=== PATIENT | female | born 1960 | race Caucasian/White ===

== ENCOUNTER 2019-12-05 10:38 | Outpatient (CLI) | payer OTHER, SELFPAY ==
--- NOTE | 2019-12-05 10:45 | MM_ITS ---
WS: [id number] BILATERAL DIGITAL SCREENING MAMMOGRAM WITH CAD CLINICAL INFORMATION: SCREENING HISTORY: Screening mammogram. No current complaints. COMPARISON: August 07, 2018 TECHNIQUE: Bilateral CC and MLO views. FINDINGS: Fatty-replaced breasts bilaterally. No suspicious focal mass, asymmetry, calcifications, or architectural examiner ural distortion. No evidence of malignancy. MM/[place] [id number] IMPRESSION: BI-RADS: 1-Negative FOLLOW UP: 1 Year Follow-up Recommend return to annual screening mammography.
== END 2019-12-05 10:39 | disposition home or self-care (01) ==
LOC: RADSHAW 10:40
PROVIDERS: Family Provider Internal Medicine; PCP Internal Medicine; Visit Provider Internal Medicine
DX: Z12.31 Encounter for screening mammogram for malignant neoplasm of breast (principal)
CPT/HCPCS: 77067

== ENCOUNTER 2020-12-04 11:43 | Outpatient (CLI) | payer OTHER, SELFPAY ==
--- NOTE | 2020-12-04 11:56 | MM_ITS ---
WS: [id number] BILATERAL SCREENING DIGITAL MAMMOGRAM WITH CAD HISTORY: SCREENING COMPARISON: 12/05/2019 and 08/07/2018 Bilateral CC and MLO views submitted. Computer aided detection analyzed. Breast composition: The breasts are almost entirely fatty. No suspicious masses, microcalcifications or architectural distortion. MM/[place] [id number] IMPRESSION: BI-RADS: 1-Negative FOLLOW UP: 1 Year Follow-up
== END 2020-12-04 11:44 | disposition home or self-care (01) ==
LOC: RADSHAW 11:46
PROVIDERS: Family Provider Internal Medicine; PCP Internal Medicine; Visit Provider Internal Medicine
DX: Z12.31 Encounter for screening mammogram for malignant neoplasm of breast (principal)
CPT/HCPCS: 77067

== ENCOUNTER 2021-01-15 08:41 | Day surgery (SDC) | payer OTHER, SELFPAY ==
[2021-01-08 07:44] VITALS: BMI 50.8
--- NOTE | 2021-01-15 09:13 | ANES.PREANE2 ---
Pre-Anesthetic Assessment Pre-Anesthetic Assessment: Height/Weight: Height 1.55 m Weight 122.016 kg Preop Diagnosis: screening colonoscopy Proposed Procedure: Operation Date: 01/15/21 10:00 Proposed Procedures p Colonoscopy 02663 z86.010(Not Applicable) - Donny Meadows MD Was Beta Evette taken within 24 hours: Yes Was Clonidine taken within 24 hours: N/A Social: Social History: No alcohol and No tobacco Exam: Pre-Anes Outpt Exam: alert, oriented x 3, clear to auscultation bilaterally and regular rate & rhythm Airway: Submandibular: WNL Cervical ROM: WNL MP: 2 Dentition: Full CV/HEM: CV/HEM: CAD, HTN and CT Comments: CABG GI: GI: GERD Metabolic: Metabolic: Morbid obesity and Thyroid Anesthetic Plan: ASA status: 3 Anesthesia: MAC Risk of > 500 ml blood loss (7ml/kg in children): No PFSH Anesthesia PFSH: Medical History (Updated 12/19/20 @ 09:50 by Donny Meadows MD) GERD (gastroesophageal reflux disease) Hypertension Hypothyroidism Surgical History (Updated 12/19/20 @ 09:50 by Donny Meadows MD) History of arthroplasty of right shoulder History of History of coronary artery bypass graft x 2 (~1995) History of hysterectomy History of tonsillectomy Status post colonoscopy Family History (Updated 12/19/20 @ 09:38 by Laury Fritz RN) Denies family history of Anesthesia complication Bleeding disorder Social History (Updated 12/19/20 @ 09:38 by Laury Fritz RN) Smoking and tobacco status: former smoker Quit status (tobacco): has quit using tobacco Year quit tobacco: 1997 Alcohol intake: never Data Anesthesia Cardiac Studies: No Data to Display
[2021-01-15] MEDS: sodium chloride 0.9% 1,000 ML 30 ML IV (09:41)
[2021-01-15 09:46] VITALS: BP 188/92; PULSE 76; RESP 16; TEMP 36.9; O2SAT 99
--- NOTE | 2021-01-15 10:04 | W.PM.OPSUD ---
Surgery/Procedure H&P Update DATE OF PROCEDURE: January 15, 2021 DATE H&P PERFORMED: 12/19/20 H&P UPDATE INFORMATION: I have reviewed H&P completed within last 30 days, I have examined patient prior to procedure and No changes to prior documentation PREOP DIAGNOSIS: screening colonoscopy PLANNED PROCEDURE: Operation Date: 01/15/21 10:00 Proposed Procedures p Colonoscopy 66356 z86.010(Not Applicable) - Donny Meadows MD
[2021-01-15 10:39] VITALS: BP 136/69; PULSE 74; RESP 18; TEMP 37.2; O2SAT 99
--- NOTE | 2021-01-15 10:45 | ANE.PACU2 ---
Inpatient post-anesthesia follow up: Airway intact: Yes Vital signs: Temperature 98.4 F Pulse Rate 76 Respiratory Rate 16 Blood Pressure 188/92 Pulse Oximetry 99 Oxygen Delivery Me thod Oxygen Flow Rate Fraction of Inspir ed Oxygen Hydration adequate: Yes Nausea and vomiting: No Pain level: 1 Mental status: Baseline
--- NOTE | 2021-01-15 14:36 | ANE.PACU2 ---
Inpatient post-anesthesia follow up: Airway intact: Yes Vital signs: Temperature 99 F Pulse Rate 74 Respiratory Rate 18 Blood Pressure 136/69 Pulse Oximetry 99 Oxygen Delivery Me thod Room Air Oxygen Flow Rate Fraction of Inspir ed Oxygen Hydration adequate: Yes Nausea and vomiting: No Pain level: 1 Mental status: Baseline
== END 2021-01-15 11:15 | disposition home or self-care (01) ==
PROVIDERS: PCP Internal Medicine; Visit Provider Surgery
PROC: 0DJD8ZZ Inspection of Lower Intestinal Tract, Via Natural or Artificial Opening Endoscopic (ICD-10-PCS; CPT 45378; principal; 2021-01-15 10:00)
DX: Z12.11 Encounter for screening for malignant neoplasm of colon (principal); K57.30 Diverticulosis of large intestine without perforation or abscess without bleeding; K64.8 Other hemorrhoids; I25.10 Atherosclerotic heart disease of native coronary artery without angina pectoris; I10 Essential (primary) hypertension; I25.2 Old myocardial infarction; Z95.1 Presence of aortocoronary bypass graft; K21.9 Gastro-esophageal reflux disease without esophagitis; E66.01 Morbid (severe) obesity due to excess calories; Z68.43 Body mass index [BMI] 50.0-59.9, adult; Z87.891 Personal history of nicotine dependence
CPT/HCPCS: 45378; 96360; J2704; J7030

== ENCOUNTER 2021-09-05 04:47 | Emergency (ER) | payer OTHER, SELFPAY ==
--- NOTE | 2021-09-05 04:51 | ECG_ITS ---
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 Measurements Intervals Reva Rate: 56 P: 38 WV: 215 QRS: 23 QRSD: 101 T: 29 QT: 433 QTc: 421 Interpretive Statements SINUS BRADYCARDIA WITH FIRST DEGREE AV BLOCK No previous ECG available for comparison Electronically Signed On 09-05-2021 22:00:53 HEMATOLOGY TECHNICIAN by Randolph Jay M.D. [id number]
--- NOTE | 2021-09-05 04:51 | XRR_ITS ---
PROCEDURE INFORMATION: Exam: XR Chest Exam date and time: 09/05/2021 4:51 AM Age: 61 years old Clinical indication: Chest pressure; Prior surgery; Surgery type: Cabg; Patient HX: Chest pain; Additional info: Cp TECHNIQUE: Imaging protocol: XR of the chest. Views: 1 view. COMPARISON: No relevant prior studies available. FINDINGS: Lungs: Unremarkable. No consolidation. Pleural spaces: Unremarkable. No pleural effusion. No pneumothorax. Heart/Mediastinum: There is mild cardiomegaly. Bones/joints: There has been a median sternotomy. XR/XR chest 1V portable [id number] IMPRESSION: Mild cardiomegaly. Radiation Dose CTDIVOL = (mGy): DLP = (mGy-cm)
[2021-09-05 05:00] VITALS: BP 176/81; PULSE 58; RESP 16; TEMP 36.4; O2SAT 97; BMI 47.5
[2021-09-05 05:04] VITALS: BP 156/78; PULSE 62; RESP 16; TEMP 36.4; O2SAT 97
--- NOTE | 2021-09-05 05:08 | W.ED.CHESTPA ---
Documented by User: Young Alarcon MD 09/05/21 05:39 HPI - Chest Pain General: Chief Complaint: Chest Pain Stated Complaint: Chest Pains Time Seen by Provider: 09/05/21 04:53 Source: patient Limitations: no limitations History of Present Illness: HPI narrative: 61-year-old female states she been having discomfort in her chest since noon yesterday. She does not relate pain she just feels sore to her chest like she worked out. She denies any dyspnea denies any diaphoresis. She denies any worsening improving factors. She does have a history of heart disease she did have a CABG in 1997. Denies any cough or fever. Associated symptoms: Deny abdominal pain, dyspnea, fever(s), nausea or vomiting Review of Systems Const: Denies: fever(s), chills, body aches or change in appetite Eyes: Denies: blurry vision or eye discomfort ENMT: Denies: throat pain or dental pain Card: Reports: chest pain Resp: Denies: dyspnea GI: Denies: abdominal pain, nausea, vomiting or diarrhea : Denies: dysuria Musc: Denies: neck pain or back pain Skin/Breast: Denies: rash Neuro: Denies: headache(s) Psych: Denies: depression Grayson/Lymph: Denies: easy bruising All/Imm: Denies: urticaria PFSH ED PFSH: Medical History GERD (gastroesophageal reflux disease) Hypertension Hypothyroidism Surgical History History of arthroplasty of right shoulder History of History of coronary artery bypass graft x 2 (~1995) History of hysterectomy History of tonsillectomy Status post colonoscopy (01/15/21) diverticulosis, internal hemorrhoids, repeat in 10 years Family History Denies family history of Anesthesia complication Bleeding disorder Social History Smoking and tobacco status: former smoker Quit status (tobacco): has quit using tobacco Year quit tobacco: 1997 Alcohol intake: never Physical Exam Const: COMMON NORMALS: no acute distress, patient oriented x3 and healthy appearing HENMT: COMMON NORMALS: normocephalic and atraumatic HEAD & SCALP: normocephalic and atraumatic Eye: COMMON NORMALS: Equal, round and reactive pupils present and EOMs intact bilaterally PUPIL: Yes Equal, round and reactive pupils present Neck/C-Spine: COMMON NORMALS: full ROM and supple Chest: COMMONS NORMALS: normal inspection of the chest and normal palpation of entire chest wall Resp: COMMON NORMALS: normal respiratory effort, No retractions, No use of accessory muscles and clear to auscultation bilaterally AUSCULTATION: clear to auscultation bilaterally Cardio: COMMON NORMALS: regular rate, regular rhythm and No murmurs present (Cardio) RATE: regular rate RHYTHM: regular rhythm GI: COMMON NORMALS: Normal to inspection, nondistended, normoactive bowel sounds present, Soft to palpation, non-tender and no masses PALPATION: Yes Soft to palpation Extremity: COMMON NORMALS: normal to inspection and full ROM Neuro: COMMON NORMALS: patient oriented x3, moves all extremities and no focal motor deficits Psych: COMMON NORMALS: mental status grossly normal, Normal thought process present and cooperative THOUGHT PROCESS: Normal thought process present Skin: COMMON NORMALS: no rashes or lesions noted and no wounds GENERAL SKIN EXAM: no rashes or lesions noted Course Vital Signs: Vital signs: Vital Signs Temperature 97.6 F 09/05/21 05:04 Pulse Rate 56 L 09/05/21 06:40 Respiratory Rate 15 09/05/21 06:40 Blood Pressure 154/76 09/05/21 06:40 Pulse Oximetry 100 09/05/21 06:40 MDM - Chest Pain Lab Data: Labs: Lab Results 09/05/21 09/05/21 09/05/21 05:18 05:18 05:18 WBC 7.4 10^3/uL 10^3/ uL (4.0-10.0) RBC 4.88 10^6/uL 10^6 /uL (4.1-5.3) Hgb 14.0 g/dL g/dL (11.5-15.3) Hct 43.0 % % (37.0-47.0) MCV 88.1 fl fl (81-99) MCH 28.7 pg pg (28.0-34.0) MCHC 32.6 g/dL g/dL (30.0-36.0) RDW 13.3 % % (12.1-15.1) Plt Count 253 10^3/cmm 10^3 /cmm (130-400) MPV 10.5 fL H fL (7.4-10.4) Neut % (Auto) 57.5 % % Lymph % (Auto) 30.2 % % [place] % (Auto) 9.1 % % Eos % (Auto) 2.3 % % Baso % (Auto) 0.5 % % Neut # (Auto) 4.23 10^3/uL 10^3 /uL (1.8-7.7) Lymph # (Auto) 2.2 10^3/uL 10^3/ uL (0.8-4.8) [place] # (Auto) 0.7 10^3/uL 10^3/ uL (0.2-0.9) Eos # (Auto) 0.2 10^3/uL 10^3/ uL (0.0-0.8) Baso # (Auto) 0.0 10^3/uL 10^3/ uL (0.0-0.1) Nucleated RBC % (a uto) 0 % % Nucleated RBCs # 0.0 /100WBC /100W BC Sodium 139 mmol/L mmol/L (136-145) Potassium 3.7 mmol/L mmol/L (3.5-5.1) Chloride 100 mmol/L mmol/L (98-107) Carbon Dioxide 25 mmol/L mmol/L (22-29) Anion Gap 17.7 (5-19) BUN 18 mg/dL mg/dL (8-23) Creatinine 1.0 mg/dL H mg/dL (0.5-0.9) GFR Calculation 56.0 mL/min L mL/ min (90-130) Glucose 99 mg/dL mg/dL (65-115) Calculated Osmolal ity 290 mOsm/kg mOsm/ kg (285-295) Calcium 9.1 mg/dL mg/dL (8.5-10.5) Total Bilirubin 0.3 mg/dL mg/dL (0.15-1.2) AST 15 U/L U/L (0-32) ALT 21 U/L U/L (0-33) Alkaline Phosphata se 91 IU/L IU/L (35-105) Troponin T Baselin e 6 ng/L ng/L (0-10) Total Protein 7.0 g/dL g/dL (6.6-8.7) Albumin 4.3 g/dL g/dL (3.5-5.2) Globulin 2.7 g/dL g/dL (1.3-4.6) EKG Data^: EKG 1: Attestation: I personally reviewed and interpreted this EKG as follows: EKG interpretation date: 09/05/21 EKG interpretation time: 04:57 Interpretation: sinus merrill hr [address] or t wave abnormalities qrs 101 qtc 425 Discharge Plan Discharge Patient Disposition: Home Clinical Impression: Chest pain Condition: Stable Prescriptions: No Action atenolol 25 mg tablet 25 mg PO DAILY RF: 0 levothyroxine 75 mcg capsule 75 mcg PO DAILY RF: 0 alprazolam 0.25 mg tablet 0.25 mg PO DAILY PRN (Reason: ANXIETY) RF: 0 Dexilant 30 mg capsule,biphase delayed releas 30 mg PO DAILY PRN (Reason: Nausea) RF: 0 aspirin 325 mg tablet 325 mg PO DAILY RF: 0 hydrochlorothiazide 25 mg tablet 25 mg PO DAILY RF: 0 simvastatin 20 mg tablet 20 mg PO BEDTIME RF: 0 ramipril 10 mg Capsule 10 mg PO DAILY RF: 0 calcium phos,dibas-vitamin D3 77-400 mg-unit Tablet 1,000 tab PO DAILY RF: 0 Discharge Orders: Discharge ED (Routine); Ordered 09/05/21 Ordered By: Alexis Atkinson Referrals: Amira Bui MD [Primary Care Provider] - Discharge Diet: Usual diet Discharge Activity: Resume usual activity Patient Instructions: Chest Pain (ED) Activity Restrictions/Additional Instructions: Thank you for visiting the emergency department. You were seen and evaluated for chest pain. There are various causes of chest pain and as discussed based on heart score you're moderate risk. I will message our bilingual patient support caseworker to help arrange outpatient stress test early next week. Please follow-up with your primary care provider. Please return to the emergency department for recurrent symptoms, worsening symptoms, or anything else that you are concerned about and feel needs emergency department evaluation. Sign Out Sign Out Data: Patient Sign Out occurred on 09/05/21 at 06:03. Patient's care was discussed, and care was transferred from to Alexis Atkinson MD. Coding Level of Care Code ED New Accounts Clerk for Chg Fwd Exam Comprehensive Documented by User: Alexis Atkinson MD 09/06/21 07:13 HPI - Chest Pain General: Chief Complaint: Chest Pain Stated Complaint: Chest Pains Time Seen by Provider: 09/05/21 04:53 PFSH ED PFSH: Medical History GERD (gastroesophageal reflux disease) Hypertension Hypothyroidism Surgical History History of arthroplasty of right shoulder History of History of coronary artery bypass graft x 2 (~1995) History of hysterectomy History of tonsillectomy Status post colonoscopy (01/15/21) diverticulosis, internal hemorrhoids, repeat in 10 years Family History Denies family history of Anesthesia complication Bleeding disorder Social History Smoking and tobacco status: former smoker Quit status (tobacco): has quit using tobacco Year quit tobacco: 1997 Alcohol intake: never Course Vital Signs: Vital signs: Vital Signs Temperature 97.6 F 09/05/21 05:04 Pulse Rate 56 L 09/05/21 06:40 Respiratory Rate 15 09/05/21 06:40 Blood Pressure 154/76 09/05/21 06:40 Pulse Oximetry 100 09/05/21 06:40 MDM - Chest Pain MDM Narrative: Medical decision making narrative: Patient care handoff received from Dr. Alarcon pending completion of evaluation. Labs and imaging reviewed. I discussed results of ED evaluation. I discussed possible etiologies of chest pain including heart score and risk of major adverse cardiac events with risk stratification. Patient is moderate risk however she prefers to have outpatient further evaluation. Patient discharged in satisfactory condition. Alexis Atkinson MD Emergency Medicine Lab Data: Labs: Lab Results 09/05/21 09/05/21 09/05/21 05:18 05:18 05:18 WBC 7.4 10^3/uL 10^3/ uL (4.0-10.0) RBC 4.88 10^6/uL 10^6 /uL (4.1-5.3) Hgb 14.0 g/dL g/dL (11.5-15.3) Hct 43.0 % % (37.0-47.0) MCV 88.1 fl fl (81-99) MCH 28.7 pg pg (28.0-34.0) MCHC 32.6 g/dL g/dL (30.0-36.0) RDW 13.3 % % (12.1-15.1) Plt Count 253 10^3/cmm 10^3 /cmm (130-400) MPV 10.5 fL H fL (7.4-10.4) Neut % (Auto) 57.5 % % Lymph % (Auto) 30.2 % % [place] % (Auto) 9.1 % % Eos % (Auto) 2.3 % % Baso % (Auto) 0.5 % % Neut # (Auto) 4.23 10^3/uL 10^3 /uL (1.8-7.7) Lymph # (Auto) 2.2 10^3/uL 10^3/ uL (0.8-4.8) [place] # (Auto) 0.7 10^3/uL 10^3/ uL (0.2-0.9) Eos # (Auto) 0.2 10^3/uL 10^3/ uL (0.0-0.8) Baso # (Auto) 0.0 10^3/uL 10^3/ uL (0.0-0.1) Nucleated RBC % (a uto) 0 % % Nucleated RBCs # 0.0 /100WBC /100W BC Sodium 139 mmol/L mmol/L (136-145) Potassium 3.7 mmol/L mmol/L (3.5-5.1) Chloride 100 mmol/L mmol/L (98-107) Carbon Dioxide 25 mmol/L mmol/L (22-29) Anion Gap 17.7 (5-19) BUN 18 mg/dL mg/dL (8-23) Creatinine 1.0 mg/dL H mg/dL (0.5-0.9) GFR Calculation 56.0 mL/min L mL/ min (90-130) Glucose 99 mg/dL mg/dL (65-115) Calculated Osmolal ity 290 mOsm/kg mOsm/ kg (285-295) Calcium 9.1 mg/dL mg/dL (8.5-10.5) Total Bilirubin 0.3 mg/dL mg/dL (0.15-1.2) AST 15 U/L U/L (0-32) ALT 21 U/L U/L (0-33) Alkaline Phosphata se 91 IU/L IU/L (35-105) Troponin T Baselin e 6 ng/L ng/L (0-10) Total Protein 7.0 g/dL g/dL (6.6-8.7) Albumin 4.3 g/dL g/dL (3.5-5.2) Globulin 2.7 g/dL g/dL (1.3-4.6) Discharge Plan Discharge Patient Disposition: Home Clinical Impression: Chest pain Condition: Stable Prescriptions: No Action atenolol 25 mg tablet 25 mg PO DAILY RF: 0 levothyroxine 75 mcg capsule 75 mcg PO DAILY RF: 0 alprazolam 0.25 mg tablet 0.25 mg PO DAILY PRN (Reason: ANXIETY) RF: 0 Dexilant 30 mg capsule,biphase delayed releas 30 mg PO DAILY PRN (Reason: Nausea) RF: 0 aspirin 325 mg tablet 325 mg PO DAILY RF: 0 hydrochlorothiazide 25 mg tablet 25 mg PO DAILY RF: 0 simvastatin 20 mg tablet 20 mg PO BEDTIME RF: 0 ramipril 10 mg Capsule 10 mg PO DAILY RF: 0 calcium phos,dibas-vitamin D3 77-400 mg-unit Tablet 1,000 tab PO DAILY RF: 0 Discharge Orders: Discharge ED (Routine); Ordered 09/05/21 Ordered By: Alexis Atkinson Referrals: Amira Bui MD [Primary Care Provider] - Discharge Diet: Usual diet Discharge Activity: Resume usual activity Patient Instructions: Chest Pain (ED) Activity Restrictions/Additional Instructions: Thank you for visiting the emergency department. You were seen and evaluated for chest pain. There are various causes of chest pain and as discussed based on heart score you're moderate risk. I will message our bilingual patient support caseworker to help arrange outpatient stress test early next week. Please follow-up with your primary care provider. Please return to the emergency department for recurrent symptoms, worsening symptoms, or anything else that you are concerned about and feel needs emergency department evaluation. Sign Out Sign Out Data: Patient Sign Out occurred on 09/05/21 at 06:03. Patient's care was discussed, and care was transferred from to Alexis Atkinson MD. Coding Level of Care Code ED New Accounts Clerk for Chg Fwd Exam Comprehensive
[2021-09-05 05:31] LABS: Basophils % 0.5 %; Eosinophils # 0.2 10^3/uL (0.0-0.8); Eosinophils % 2.3 %; Lymphocytes # 2.2 10^3/uL (0.8-4.8); Lymphocytes % 30.2 %; Mean Corpuscular HGB Conc 32.6 g/dL (30.0-36.0); Mean Corpuscular Hemoglobin 28.7 pg (28.0-34.0); Mean Corpuscular Volume 88.1 fl (81-99); Mean Platelet Volume 10.5 fL (7.4-10.4); Monocytes # 0.7 10^3/uL (0.2-0.9); Monocytes % 9.1 %; Neutrophils # 4.23 10^3/uL (1.8-7.7); Neutrophils % 57.5 %; Nucleated Red Blood Cells % 0 %; Platelet Count 253 10^3/cmm (130-400); Red Blood Count 4.88 10^6/uL (4.1-5.3); Red Cell Distribution Width 13.3 % (12.1-15.1); White Blood Count 7.4 10^3/uL (4.0-10.0)
[2021-09-05 05:47] LABS: Alanine Aminotransferase 21 U/L (0-33); Albumin Level 4.3 g/dL (3.5-5.2); Alkaline Phosphatase 91 IU/L (35-105); Anion Gap 17.7 (5-19); Aspartate Amino Transferase 15 U/L (0-32); Blood Urea Nitrogen 18 mg/dL (8-23); Calcium 9.1 mg/dL (8.5-10.5); Carbon Dioxide 25 mmol/L (22-29); Chloride 100 mmol/L (98-107); Globulin 2.7 g/dL (1.3-4.6); Glucose 99 mg/dL (65-115); Osmolality Calculated 290 mOsm/kg (285-295); Potassium 3.7 mmol/L (3.5-5.1); Sodium 139 mmol/L (136-145); Total Bilirubin 0.3 mg/dL (0.15-1.2)
[2021-09-05 06:06] LABS: Troponin(5th) Baseline 6 ng/L (0-10)
[2021-09-05 06:40] VITALS: BP 154/76; PULSE 56; RESP 15; O2SAT 100
--- NOTE | 2021-09-09 11:26 | DCPLANNER ---
assistant distribution manager had message to schedule an outpatient stress test and an echo cardiogram for patient. assistant distribution manager faxed signed order to centralized scheduling, who will call patient with appointment information.
--- NOTE | 2021-10-09 08:26 | DCPLANNER ---
Patient has an outpatient stress test scheduled for Wednesday, October 13, 2021 at 9:15. Centralized scheduling will call patient with appointment information.
--- NOTE | 2021-10-15 15:21 | DCPLANNER ---
patient had a follow up appointment scheduled for an outpatient stress test - patient did attend the stress test.
== END 2021-09-05 06:46 | disposition home or self-care (01) ==
PROVIDERS: Emergency Medicine; Emergency Provider Emergency Medicine; PCP Internal Medicine
DX: R07.9 Chest pain, unspecified (principal); Z79.82 Long term (current) use of aspirin; I10 Essential (primary) hypertension; Z95.1 Presence of aortocoronary bypass graft; Z87.891 Personal history of nicotine dependence
CPT/HCPCS: 71045; 80053; 84484; 85025; 93005; 99284

== ENCOUNTER 2021-10-13 06:53 | Outpatient (CLI) | payer OTHER, SELFPAY ==
[2021-10-13 07:15] VITALS: BMI 48.4
--- NOTE | 2021-10-13 07:16 | NMCV_ITS ---
NM caitlyn perf SPECT r/s* [id number] Mame Vigil Age: 61 Gender: F : 1960 Exam Date: 10/13/2021 08:00 Ordering Phys: Alexis Atkinson MD Technologist: CASIE Durant Exam Location: [facility] Indications: CHEST PAIN STRESS TEST Please see separate stress test report in [facility] for full findings IMAGE PROTOCOL Rest/Stress 1 Lexiscan Day Radiopharmaceutical Dose (mCi) Administration Site Administered by Rest: Tc-99m 10.6 IV CASIE Durant Sestamibi Stress:Tc-99m 32.6 IV CASIE Holm Sestamibi Rest: 13-Oct-2021 60 Discovery 630 Stress: 13-Oct-2021 30 Discovery 630 0.4mg Lexiscan. Images obtained in supine and prone position. SPECT RESULTS Technical Quality: Excellent Raw Data Analysis: Breast attenuation Image Corrections: No attenuation or motion correction applied Summed Stress Score: 7 Summed Rest Score: 8 Summed Difference Score: 1 PERFUSION FINDINGS Moderate area of decreased tracer uptake was noted in the mid anterolateral, mid inferolateral and apical segments. Significant reversibility was noted in these regions at rest FUNCTIONAL RESULTS (calculated via Gated SPECT) Stress Image LV EF (%): 83 Stress EDV (mL):78 TID: 0.72 Stress ESV (mL):13 FUNCTIONAL FINDINGS: Segmental wall motion analysis revealing no gross wall motion abnormalities. IMPRESSIONS 1. Myocardial perfusion imaging revealing moderate area of moderately decreased tracer uptake in the anterolateral, inferolateral and apical regions with a significant reversibility, suggestive of myocardial scarring with ischemia, mostly in the distribution of the left circumflex artery with some involvement of the right coronary artery 2. Normal LV ejection fraction of 83%. 3. LV wall motion analysis revealing no gross wall motion normalities. 4. Normal LV volume. No similar previous studies are available for comparison Dr Randolph Jay MD [facility] (Electronically Signed) Final Date: 13 October 2021 17:28 S
--- NOTE | 2021-10-13 07:16 | ECG_ITS ---
[facility] Test Date: 2021-10-13 Pat Name: Mame Vigil Department: Room: Gender: Female Real Estate Teacher: Hannah Alarcon : 1960 Requested By: Alexis Atkinson Order Number: [id number] Lillie MD: Randolph Jay M.D. Interpretive Statements NAME OF STUDY: LEXISCAN SESTAMIBI STRESS TEST INDICATION: Chest Pain, PROCEDURE: At the baseline, the EKG revealed normal sinus rhythm with a normal ST Ts. Poor R wave progression. The baseline blood pressure was 120/70 mm Hg with a heart rate of 72 beats/min. Lexiscan was infused over a period of 20 seconds. A total of 0.4 milligrams of Lexiscan was infused. The stress phase was continued for a total of 5 minutes. Heart rate at the end of the stress phase was 76 with a blood pressure 131/75. The EKG at the peak infusion revealed some nonspecific ST changes. Sestamibi was injected 20 seconds after the Lexiscan infusion. Blood pressure at the end of the recovery phase was 132/70 with a heart rate of 72 per minute. CONCLUSION: 1. No significant EKG changes with the LexiScan infusion 2. No LexiScan induced chest pain or cardiac arrhythmia 3. Normal blood pressure and heart rate response 4. Sestamibi/sestamibi perfusion scan pending; see separate report. Electronically Signed On 10-16-2021 10:39:28 WHISKEY FILTERER by Randolph Jay M.D. [email or web address]
[2021-10-13] MEDS: regadenoson 0.4 Mg/5 ml Syringe IVP (09:15)
[2021-10-13 09:16] VITALS: BP 146/77; PULSE 77
== END 2021-10-13 06:54 | disposition home or self-care (01) ==
LOC: CDL 06:56
PROVIDERS: PCP Internal Medicine; Visit Provider Emergency Medicine
DX: R07.9 Chest pain, unspecified (principal); R06.02 Shortness of breath
CPT/HCPCS: 78452; 93017; A9500; J2785

== ENCOUNTER 2022-06-07 08:18 | Outpatient (CLI) | payer OTHER, SELFPAY ==
--- NOTE | 2022-06-07 08:31 | MM_ITS ---
WS: [id number] BILATERAL SCREENING DIGITAL TOMOSYNTHESIS MAMMOGRAM WITH CAD HISTORY: SCREENING COMPARISON: 12/04/2020 and 12/05/2019 Bilateral CC and MLO views with tomosynthesis and synthetic mammography submitted. Computer aided det ection analyzed. Breast composition: There are scattered areas of fibroglandular density. No suspicious masses, microc alcifications or architectural distortion. MM/[place] [id number] IMPRESSION: BI-RADS: 1-Negative FOLLOW UP: 1 Year Follow-up
== END 2022-06-07 08:19 | disposition home or self-care (01) ==
LOC: RAD 08:20
PROVIDERS: PCP Internal Medicine; Visit Provider Internal Medicine
DX: Z12.31 Encounter for screening mammogram for malignant neoplasm of breast (principal)
CPT/HCPCS: 77063; 77067

== ENCOUNTER 2023-07-08 15:12 | Outpatient (CLI) | payer BC, SELFPAY ==
--- NOTE | 2023-07-08 15:23 | MM_ITS ---
WS: [id number] SCREENING DIGITAL TOMOSYNTHESIS MAMMOGRAM WITH CAD HISTORY: SCREENING COMPARISON: None available. Bilateral CC and MLO with tomosynthesis views submitted. Synthetic mammography reviewed. Computer aid ed detection analyzed. Breast composition: There are scattered areas of fibroglandular density. No suspicious masses, microc alcifications or architectural distortion. IMPRESSION: MM/[place] [id number] BI-RADS: 1-Negative FOLLOW UP: 1 Year Follow-up
== END 2023-07-08 15:13 | disposition home or self-care (01) ==
LOC: RAD 15:16
PROVIDERS: PCP Internal Medicine; Visit Provider Internal Medicine
DX: Z12.31 Encounter for screening mammogram for malignant neoplasm of breast (principal)
CPT/HCPCS: 77063; 77067

== ENCOUNTER → 2023-09-19 13:26 | Outpatient (BNVA) | payer BC, SELFPAY | PROVIDERS: PCP Internal Medicine; Visit Provider Podiatrist Foot & Ankle Surgery | DX: Q82.8 Other specified congenital malformations of skin; M72.2 Plantar fascial fibromatosis | CPT/HCPCS: 73630 ==

== ENCOUNTER 2025-01-28 12:55 | Outpatient (CLI) | payer MEDICARE, OTHER, SELFPAY ==
--- NOTE | 2025-01-28 12:58 | MM_ITS ---
WS: [id number] BILATERAL 3D TOMOSYNTHESIS DIGITAL SCREENING MAMMOGRAM WITH CAD CLINICAL INFORMATION: SCREENING HISTORY: Screening mammogram. No current complaints. COMPARISON: 2022 TECHNIQUE: Bilateral CC and MLO views. FINDINGS: Fatty-replaced breasts bilaterally. No suspicious focal mass, asymmetry, calcifications, or architectural distortion. No evidence of malignancy. MM/MM scr BI tomosynthesis [id number] IMPRESSION: DENSITY: The breasts are almost entirely fatty. BI-RADS: 1 - Negative. FOLLOW UP: 1 Year Follow-up Recommend return to annual screening mammography.
== END 2025-01-28 12:56 | disposition home or self-care (01) ==
PROVIDERS: PCP Internal Medicine; Visit Provider Internal Medicine
DX: Z12.31 Encounter for screening mammogram for malignant neoplasm of breast (principal); R92.313 Mammographic fatty tissue density, bilateral breasts
CPT/HCPCS: 77063; 77067

== ENCOUNTER → 2025-08-14 10:44 | Outpatient (BNVA) | payer MEDICARE, OTHER, SELFPAY | PROVIDERS: PCP Internal Medicine; Visit Provider Podiatrist Foot & Ankle Surgery | DX: Q82.8 Other specified congenital malformations of skin (principal) | CPT/HCPCS: 17110 ==